=== PATIENT | male | born 1950 | race African-American/Black ===

== ENCOUNTER → 2021-10-21 | Outpatient (CLI) | payer MEDICARE, OTHER ==
[~2021-10-21] MED LIST: IOHEXOL 300 MG/ML 75 ML VIAL. IV ONE
--- NOTE | 2021-10-21 12:08 | RAD ---
CT chest with contrast dated 10/21/2021. COMPARISON: None. CLINICAL INDICATION: Mycosis fungoides. TECHNIQUE: Contiguous axial imaging the chest performed following the intravenous administration of 75 cc Omnipa que 300. One or more of the following individualized dose reduction techniques were utilized for this examinat ion: 1. Automated exposure control 2. Adjustment of the mA and/or kV according to patient size 3. Use of iterative reconstruction technique FINDINGS: Heart size is within normal limits. No pericardial effusion. Ectasia of the ascending thoracic aorta measuring 3.8 cm transverse. No mediastinal, hilar or axillary lymphadenopathy. Thyroid gland is unre markable. Central airways are patent. Lungs are clear. No consolidation or pleural effusion. No pneumothorax. N o suspicious pulmonary nodule or mass. Limited images of the upper abdomen are unremarkable. Vague area of hyperenhancement in the lateral a spect of the right lobe liver on image 91 likely represents a small flash filling hemangioma or small vascular shunt. No significant bony abnormality. Mild multilevel spondylosis. IMPRESSION: No acute abnormality of chest. Electronically signed by: Dominic Hernandez MD (10/21/2021 12:05 PM) PAUL
== END ==
LOC: CT 08:32
PROVIDERS: ATTEND Internal Medicine
DX: C84.00 Mycosis fungoides, unspecified site (principal); I77.810 Thoracic aortic ectasia; M47.816 Spondylosis without myelopathy or radiculopathy, lumbar region; R60.1 Generalized edema
CPT/HCPCS: 71260; Q9967